=== PATIENT | female | born 1980 | race Caucasian/White ===

== ENCOUNTER 2017-04-14 10:14 | Emergency (ER) | payer BC ==
[~2017-04-14] VITALS: Ht 152.4 cm; Wt 98.6 kg
[2017-04-14] MEDS ORDERED: DICL100T PO (10:57)
[2017-04-14] MEDS ORDERED: HYDR-3240 PO (10:57)
[2017-04-14] MEDS ORDERED: SODIUM CHLORIDE FLUSH 10ML SYR IVF ONE (11:30)
[2017-04-14] MEDS ORDERED: ONDANSETRON 2MG/ML, 2ML IVPush ONE (11:30)
[2017-04-14] MEDS ORDERED: MORPHINE SULFATE 4 MG/ML, 1ML IVPush PRN (11:30)
[2017-04-14] MEDS ORDERED: morphine SULFATE 10 MG/ML, 1ML ONE (11:34)
[2017-04-14] MEDS ORDERED: ONDANSETRON 2MG/ML, 2ML ONE (11:34)
[2017-04-14 11:42] LABS: HEMATOCRIT 46.5 % (34.6-47.8); HEMOGLOBIN 15.8 g/dL (11.7-16.4); WHITE BLOOD COUNT 8.8 x10^3/uL (3.4-10)
[2017-04-14 11:58] LABS: BLOOD UREA NITROGEN 13 mg/dL (7-18)
[2017-04-14 12:04] LABS: ASPARTATE AMINO TRANSFERASE 11 U/L (15-37)
[2017-04-14 13:00] VITALS: BP 121/52
== END 2017-04-14 13:59 | disposition home or self-care (01) ==
LOC: ED 13:58
DX: R10.11 Right upper quadrant pain (principal)
CPT/HCPCS: 36415; 76700; 80053; 81003; 83690; 84703; 85025; 96374; 96375; 99285; J2405

== ENCOUNTER → 2021-01-08 | Outpatient (CLI) | payer OTHER ==
[~2021-01-08] MED LIST: DICL100T PO; HYDR-2214 PO
== END | disposition home or self-care (01) ==
LOC: CARD 09:24
PROVIDERS: ATTEND Internal Medicine Cardiovascular Disease
DX: R07.89 Other chest pain (principal); Z82.49 Family history of ischemic heart disease and other diseases of the circulatory system
CPT/HCPCS: 93017